=== PATIENT | male | born 1985 | race African-American/Black ===

== ENCOUNTER 2025-06-19 18:54 | Emergency (ER) | payer OTHER, SELFPAY ==
--- OUTSIDE RECORDS SUMMARY | 2025-06-19 19:07 | XMS_ITS | Clinical Summary ---
Author Organization [facility] Address [facility] [place] [address] Care Team Providers Care Electrotype Molder Name Role Phone None, Provider MD Primary Care Provider Unavaila ble Allergies Active Allergy Reactions Criticality Noted Date Comments Lactose Intolerance (Gi) GI Upset 09/22/2023 [place] [employer] GI Upset 09/22/2023 Medications traZODone (DESYREL) 100 MG tablet Take 1 tablet (100 mg total) by mouth nightly as needed. Active cyclobenzaprine (FLEXERIL) 10 MG tablet Take 1 tablet (10 mg total) by mouth 3 (three) times daily as needed for Muscle Spasms. Active Active Problems No known active problems Family History Relation Status Comments Father Alive Mother Alive Social History Tobacco Use Types Packs/Day Years Used Date Smoking Tobacco: Never Smokeless Tobacco: Never Alcohol Use Standard Drinks/Week Comments Not Currently 0 (1 standard drink = 0.6 oz pur e alcohol) socially Sex and Gender Information Value Date Recorded Sex Assigned at Male 12/11/2024 9:08 AM [employer] Legal Sex Male 3:12 PM CDT Gender Identity Not on file Sexual Orientation Not on file Last Filed Vital Signs Vital Sign Reading Time Taken Comments Blood Pressure 134/84 12/11/2024 3:20 PM [employer] Pulse 62 12/11/2024 3:20 PM [employer] Temperature 36.4 C (97.6 F) 12/11/2024 3:20 PM [employer] Respiratory Rate 18 12/11/2024 3:20 PM [employer] Oxygen Saturation 100% 12/11/2024 3:20 PM [employer] Inhaled Oxygen Concentration - - Weight 77.5 kg (170 lb 13.7 oz) 12/11/2024 9:20 AM [employer] Height 176.5 cm (5' 9.5) 12/11/2024 9:20 AM [employer] Body Mass Index 24.87 12/11/2024 9:20 AM [employer] Plan of Treatment Health Maintenance Due Date Last Done Comments Annual Physical 1986 Hepatitis C 2001 Hepatitis B Vaccines (1 of 3 - 19+ 3-dose series) 2002 HPV Vaccines (1 - 3-dose SCD M series) 2010 COVID-19 Vaccine (2023-2 5 season) 2024 04/27/2021, 03/31/2021 DTaP, Tdap and Td Vaccines ( 3 - Td or Tdap) 10/28/2028 10/28/2018, 09/24/2008 Meningococcal Vaccine Aged Out 09/24/2008 No leonela kandace eligible based on patient's age to complete this topic Meningococcal B Vaccine Aged Out No l onger eligible based on patient's age to complete this topic Pneumococcal Vaccine: Pediatrics (0 to 5 Years) and At-Risk Patients (6 to 49 Years) Aged Out No longer eligible b ased on patient's age to complete this topic RSV Immunizations Under 20 Months Aged Out No longer eligible b ased on patient's age to complete this topic Medical Devices Implanted Type Area Layboy Operator Device Identifier Shelf Expiration Date Model / Serial / Lot 3.0 X 17 Asnis Screw Implanted:Qty: 1 on 10/09/2024 by Bhupinder Steward DPM at [facility] Screw Left: Toe [employer] DIV DEV [employer] [id number] / / [id number] Asnis Screw Implanted:Qty: 1 on 12/11/2024 by Bhupinder Steward DPM at [facility] Screw Right: Foot [employer] [id number] / / Easyclip [employer]os[employer] Compression Staple [id number] Implanted:Qty: 1 on 10/09/2024 by Bhupinder Steward DPM at [facility] Staple Left: Toe [employer] - [employer] 02/15/2029 [id number] / / [id number] Staple Bone [id number] 2m - [id number] Implanted:Qty: 1 on 12/11/2024 by Bhupinder Steward DPM at [facility] Staple Right: Foot [employer] - [employer] 08/17/2029 [id number] / / [id number] Wire Fix 5in .045in C-Wire - [id number] Implanted:Qty: 1 on 10/09/2024 by Bhupinder Steward DPM at [facility] Wire Left: Toe [employer] 12/22/2028 [id number] / / [id number] Description:LEFT FIFTH DIGIT Viaflow Implanted:Qty: 1 on 12/11/2024 by Bhupinder Steward DPM at [facility] Right: Foot [employer] 05/11/2029 [id number] / [id number] / Insurance Care Teams Electrotype Molder Relationship Specialty Start Date End Date None, Provider, PCP - General UNKNOWN PHYSICIAN SPECIALTY 05/17/23
--- OUTSIDE RECORDS SUMMARY | 2025-06-19 19:07 | XMS_ITS ---
Author Organization [facility] Address [address] [place], [place] [id number] Care Team Providers Care Candy Maker Helper Name Role Phone GAVIN FRY Unavailable [phone] Medical Group, Unavailable Unavailable REASON FOR VISIT *Orthotic pick-up Encounters Encounter Location Date Provider Diagnosis [facility] [address] [facility] [address] [place], [place] [id number] 04/22/2025 GAVIN FRY Plan Of Treatment No Information Progress Notes * DEBBY MITCHELL LDOB:1985 (40 yo M)Acc No.[id number]:04/22/2025 Patient: Ozzy BALDERRAMADEBBY Dixon Provider: Nino Fry DPM :1985 A ge:40 Y S ex:Male Date:04/22/2025 [id number] Subjective: * Chief Complaints: * 1 . *Orthotic pick-up. * Medical History: Objective: * Vitals: Assessment: Plan: * Treatment: * Billing Information: * Visit Code: * Procedure Codes: * Electronic signature of GAVIN FRY DPM on 06/19/2025 at 07:07 PM CDT Sign off status: Pending * Provider: Nino Fry DPM Date: 0 04/22/2025 Generated for Girish medina/Chey/Gloria on: 0 06/19/2025 07:07 PM CDT
--- OUTSIDE RECORDS SUMMARY | 2025-06-19 19:07 | XMS_ITS | Patient Health Record ---
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 KLL 12/03/2024 THE REFERRAL IS UNDER [facility]. L 05/13/2025 [employer] REFERRALS ARE NO LONGER VALID OF MAY 17, 2025 PER [facility]. KL Diagnosis 1 Bunion of left foot (M21.612) Referred Provider Specialty Podiatry Referral Priority Routine Reason REFERRAL ( S URGERY ) CORRJ HLX [facility]GS [facility] DSTL METEAR O 1 UNIT / REPAIR OF HAMMERTOE 1 UNIT Diagnosis 1 Hallux valgus (acqui red), left foot (M20.12) Referred Organization [facility] Referred Provider GAVIN FRY Referred Address [address],[place], [place],[id number], Referred Provider Specialty Podiatry Referral Priority Routine Reason [facility] REFERRAL ( S URGERY ) [id number], [id number], [id number] / PROVIDER DR. FRY / FACILITY [facility]. KL Diagnosis 1 Hallux valgus (acqui red), right foot (M20.11) Diagnosis 2 Pain in right foot ( M79.671) Diagnosis 3 Other hammer toe(s) (acquired), right foot (M20.41) Referred Organization [facility] Referred Provider GAVIN FRY Referred Address [address],[place], [place],[id number] Referred Provider Specialty Podiatry Referral Priority Routine Reason [facility] REFERRAL 202 5 ( ORTHOTICS ) L3020 FOOT LONGITUD/METATARSAL SUP 4 UNITS ( 2 PAIRS ) Diagnosis 1 Left foot pain (M79. 672) Diagnosis 2 Pain in right foot ( M79.671) Referred Organization [facility] Referred Provider GAVIN FRY Referred Address [address],[place], [id number] Referred Provider Specialty Podiatry Referral Priority Routine Reason [facility] REFERRAL 202 5 ( ORTHOTICS ) FOOT LONGITUD/METATARSAL SUP 4 UNITS ( 2 PAIRS ). KLL Diagnosis 1 Left foot pain (M79. 672) Diagnosis 2 Pain in right foot ( M79.671) Referred Organization [facility] Referred Provider GAVIN FRY Referred Address [address],[id number] Referred Provider Specialty Podiatry Referral Priority Routine Medications Medication SIG (Take, Route, Frequency, Duration) Notes Start Date End Date Status HYDROcodone-Acetamin ophen 5-325 MG 1 tablet as needed Orally every 4-6 hrs As needed for pain. 12/17/2024 Active Flexeril Active traZODone HCl - as directed no ricco listed on paperwork Active HYDROcodone-Acetamin ophen 5-325 MG 1 tablet as needed Orally every 4-6 hrs 12/10/2024 Active HYDROcodone-Acetamin ophen 5-325 MG 1 tablet as needed Orally every 4-6 hrs As needed for pain. 10/08/2024 Active Immunizations Vaccine Route Administration Date Status Comme nts Anthrax vaccine, for SC use Unknown 02/24/2013 Administ ered Anthrax vaccine, for SC use Unknown 03/27/2013 Administ ered Anthrax vaccine, for SC use Unknown 11/25/2013 Administ ered Anthrax vaccine, for SC use Unknown 06/14/2015 Administ ered Anthrax vaccine, for SC use Unknown 07/24/2016 Administ ered Influenza virus vaccine, quadrivalent, live (LAIV4), for intranasal use Unknown 08/10/2013 Administered Influenza virus vaccine, quadrivalent, live (LAIV4), for intranasal use Unknown 09/03/2014 Administered Influenza virus vaccine, quadrivalent, live (LAIV4), for intranasal use Unknown 10/31/2015 Administered Influenza, high dose seasonal Unknown 10/27/2024 Refuse d Influenza, high dose seasonal Unknown 11/17/2024 Refuse d Influenza, high dose seasonal Unknown 01/26/2025 Refuse d Influenza, live, intranasal Unknown 09/06/2009 Administ ered Influenza, live, intranasal Unknown 09/26/2010 Administ ered Influenza, live, intranasal Unknown 08/14/2011 Administ ered Influenza, live, intranasal Unknown 08/07/2012 Administ ered Influenza, quadrivalent, spl it, preservative free, 3 years or older Unknown 09/08/2018 Administered Influenza, quadrivalent, spl it, preservative free, 3 years or older Unknown 09/03/2019 Administered Influenza, quadrivalent, spl it, preservative free, 3 years or older Unknown 10/25/2020 Administered Influenza, quadrivalent, spl it, preservative free, 3 years or older Unknown 08/30/2021 Administered Influenza, quadrivalent, spl it, preservative free, 3 years or older Unknown 09/18/2022 Administered Influenza, quadrivalent, spl it, preservative free, 3 years or older Unknown 09/04/2023 Administered Influenza, seasonal, injecta ble, preservative free, 6-35 months Unknown 08/10/2016 Administered IPV Unknown 09/24/2008 Administered Meningococcal MCV4P Unknown 09/24/2008 Administered Moderna Covid-19 Vaccine 1st dose Unknown 03/31/2021 Ad ministered Moderna Covid-19 Vaccine 1st dose Unknown 04/27/2021 Ad ministered Influenza (split), preservat hans free, 6-35 months Unknown 09/24/2008 Administered Hep A, Adult Unknown 09/29/2008 Administered Hep A, Adult Unknown 06/14/2009 Administered Novel [id number], nasal Unknown 12/20/2009 Admin istered Pneumococcal conjugate PCV 13 Unknown 10/27/2024 Refuse d Pneumococcal conjugate PCV 13 Unknown 11/17/2024 Refuse d Pneumococcal conjugate PCV 13 Unknown 01/26/2025 Refuse d Td (adult), adsorbed Unknown 10/28/2018 Administered Tdap Unknown 09/24/2008 Administered Typhoid, ViCPs Unknown 02/24/2013 Administered Typhoid, ViCPs Unknown 06/14/2015 Administered Typhoid, ViCPs Unknown 04/02/2018 Administered Vital Signs Height-cm 175.26 cm 04/27/2025 Height 69 in 04/27/2025 Encounters Encounter Location Date Provider Diagnosis [address] [id number] 10/09/2024 GAVIN SNOOK [address] [id number] 12/11/2024 GAVIN SNOOK [facility] [address] [place], [place] [id number] 08/11/2024 GAVIN SNOOK Hallux valgus (acquired), left foot M20.12 ; Other hammer toe(s) (acquired), left foot M20.42 ; Hallux valgus (acquired), right foot M20.11 ; Ingrowing nail L60.0 and Left foot pain M79.672 [facility] [address] [place], [place] [id number] 10/13/2024 GAVIN SNOOK Hallux valgus (acquired), left foot M20.12 ; Other hammer toe(s) (acquired), left foot M20.42 ; Left foot pain M79.672 and Encounter for other specified surgical aftercare Z48.89 [facility] [address] [place], [place] [id number] 10/21/2024 GAVIN SNOOK Hallux valgus (acquired), right foot M20.11 ; Other hammer toe(s) (acquired), right foot M20.41 ; Hallux valgus (acquired), left foot M20.12 ; Left foot pain M79.672 and Encounter for other specified surgical aftercare Z48.89 [facility] [address] [place], [place] [id number] 10/27/2024 GAVIN SNOOK Hallux valgus (acquired), left foot M20.12 ; Left foot pain M79.672 and Encounter for other specified surgical aftercare Z48.89 [facility] [address] [place], [place] [id number] 11/17/2024 GAVIN SNOOK Hallux valgus (acquired), left foot M20.12 ; Left foot pain M79.672 and Encounter for other specified surgical aftercare Z48.89 [facility] [address] [place], [place] [id number] 12/17/2024 GAVIN SNOOK Hallux valgus (acquired), right foot M20.11 ; Hammer toe of right foot M20.41 ; Pain in right foot M79.671 and Encounter for other specified surgical aftercare Z48.89 [facility] [address] [place], [place] [id number] 12/31/2024 GAVIN SNOOK Hallux valgus (acquired), right foot M20.11 ; Hammer toe of right foot M20.41 ; Encounter for other specified surgical aftercare Z48.89 and Pain in right foot M79.671 [facility] [address] [place], [place] [id number] 01/14/2025 GAVIN SNOOK Hallux valgus (acquired), right foot M20.11 ; Hammer toe of right foot M20.41 ; Encounter for other specified surgical aftercare Z48.89 and Pain in right foot M79.671 [facility] [place] [address] [place], [place] [id number] 01/26/2025 GAVIN SNOOK Hallux valgus (acquired), right foot M20.11 ; Hammer toe of right foot M20.41 ; Encounter for other specified surgical aftercare Z48.89 and Pain in right foot M79.671 [facility] [address] [place], [place] [id number] 03/25/2025 GAVIN SNOOK Hallux valgus (acquired), right foot M20.11 ; Hallux valgus (acquired), left foot M20.12 ; Hammer toe of right foot M20.41 ; Cellulitis of right toe L03.031 ; Tinea pedis B35.3 and Ingrowing nail L60.0 [facility] [address] [place], [place] [id number] 04/13/2025 GAVIN SNOOK Hallux valgus (acquired), right foot M20.11 ; Hallux valgus (acquired), left foot M20.12 ; Ingrowing nail L60.0 ; Tinea pedis B35.3 and Cellulitis of right toe L03.031 [facility] [address] [place], [place] [id number] 04/27/2025 GAVIN SNOOK Contusion of right lesser toe(s) without damage to nail, subsequent encounter S90.121D and Pain in right foot M79.671 [facility] [address] [place], [place] [id number] 10/08/2024 GAVIN SNOOK [facility] [address] [place], [place] [id number] 12/10/2024 GAVIN SNOOK Assessments Encounter Date Diagnosis (ICD Code) Assessment Notes Treatment Notes Treatment Clinical Notes Section Notes 08/11/2024 Hallux valgus (acquired), left foot (ICD-10 - M20.12) Bunion Surgical Consent Surgical Consent The patient understands there are no guarantees. There is a chance of: 1. Infection 2. Failure or rejection of implant 3. Overcorrection 4. Undercorrection 5. Non resolution of the problem 6. Transfer lesions to adjacent metatarsals 7. Return of the problem 8. Numbness 9. Anesthetic reaction 10. Healing problems or blood clot 11. Additional or revisional surgery may be required if complications occur The patient had no further question and has agreed to undergo surgical correction of the admitting diagnosis. Patient has signed the written consent form at this time. Proposed Procedure: Estevan bunionectomy with hardware fixation, left foot. Sean osteotomy left hallux with hardware, left foot 08/11/2024 Other hammer toe(s) (acquired), left foot (ICD-10 - M20.42) Hammertoe Surgical Consult: Surgical Consent The patient understands there are no guarantees. There is a chance of: 1. Infection 2. Failure or rejection of implant 3. Overcorrection 4. Undercorrection 5. Non resolution of the problem 6. Return of the problem 7. Numbness 8. Anesthetic reaction 9. Healing problems or blood clot 10. Additional or revisional surgery may be required if complications occur The patient had no further question and has agreed to undergo surgical correction of the admitting diagnosis. Patient has signed the written consent form at this time. Proposed procedure: De-rotational hammertoe correction 5th digit left foot 10/13/2024 Hallux valgus (acquired), left foot (ICD-10 - M20.12) 10/13/2024 Other hammer toe(s) (acquired), left foot (ICD-10 - M20.42) 10/21/2024 Hallux valgus (acquired), right foot (ICD-10 - M20.11) Bunion: Discussed various treatments with the patient regarding hallux abducto valgus deformity. Discussed conservative care consisting of padding, wider shoes, anti-inflammatorie s, and orthotics. Discussed surgical treatment options and answered all questions about the intra-operative and post-operative treatment course. 10/21/2024 Other hammer toe(s) (acquired), right foot (ICD-10 - M20.41) Hammertoe Deformity: Discussed various treatments for hammer toes with the patient . Discussed conservative care consisting of padding, wider shoes, anti-inflammatorie s, and orthotics. Discussed surgical treatment options and answered all questions about the intra-operative and post-operative treatment course. 10/27/2024 Hallux valgus (acquired), left foot (ICD-10 - M20.12) Suture Removal: The sutures were removed. Surgical Post Operative Visit: Continue post-operative restrictions. Patient may resume normal bathing. Wear surgical shoe at all times when bearing weight. Decrease activity. 11/17/2024 Left foot pain (ICD-10 - M79.672) 12/17/2024 Hallux valgus (acquired), right foot (ICD-10 - M20.11) 10/27/2024 Left foot pain (ICD-10 - M79.672) 11/17/2024 Hallux valgus (acquired), left foot (ICD-10 - M20.12) The patient may progress to normal shoes and activities as tolerated. Work Restrictions: Provided a note to the patient outlining work restrictions and limitations. 12/17/2024 Hammer toe of right foot (ICD-10 - M20.41) 12/31/2024 Hallux valgus (acquired), right foot (ICD-10 - M20.11) 12/31/2024 Hammer toe of right foot (ICD-10 - M20.41) 01/14/2025 Hallux valgus (acquired), right foot (ICD-10 - M20.11) 01/14/2025 Hammer toe of right foot (ICD-10 - M20.41) 01/26/2025 Hallux valgus (acquired), right foot (ICD-10 - M20.11) 01/26/2025 Hammer toe of right foot (ICD-10 - M20.41) 03/25/2025 Hallux valgus (acquired), right foot (ICD-10 - M20.11) Orthotic Scan: The patient was scanned for functional orthotic devices. This was done in the subtalar joint neutral position in a non-weightbearing fashion. The patient will follow-up in 3-4 weeks time to be dispensed and fitted with the devices. 03/25/2025 Hallux valgus (acquired), left foot (ICD-10 - M20.12) 04/13/2025 Hallux valgus (acquired), right foot (ICD-10 - M20.11) Orthotic Dispense: The orthotic devices were dispensed and fitted. It was noted that the orthotic conformed well to the patient's foot in the subtalar joint neutral position. The patient was educated on the device's use, as well as the gradual break-in period for the device. 04/13/2025 Hallux valgus (acquired), left foot (ICD-10 - M20.12) 04/27/2025 Pain in right foot (ICD-10 - M79.671) 04/27/2025 Contusion of right lesser toe(s) without damage to nail, subsequent encounter (ICD-10 - S90.121D) 01/26/2025 Encounter for other specified surgical aftercare (ICD-10 - Z48.89) Mederma: I recommended that the patient use [id number] Mederma for scar. B6 And B12: Recommend that the patient take over the counter Vitamin B6 and B12. B6 pills should be taken 2-3 times a day. Vitamin B12 should be taken once a day as an under the tongue lozenge. 04/13/2025 Ingrowing nail (ICD-10 - L60.0) Resolved 03/25/2025 Hammer toe of right foot (ICD-10 - M20.41) 12/31/2024 Encounter for other specified surgical aftercare (ICD-10 - Z48.89) Suture Removal: The sutures were removed. Surgical Post Operative Visit: Continue post-operative restrictions. Patient may resume normal bathing. Wear surgical shoe at all times when bearing weight. Decrease activity. The patient needs to NOT DRIVE and must wear his surgical shoe and not a Croc!!!! Patient verbalized understanding. 01/14/2025 Encounter for other specified surgical aftercare (ICD-10 - Z48.89) The patient may progress to normal shoes and activities as tolerated. Return to Activities: Patient may return to activities as tolerated. 11/17/2024 Encounter for other specified surgical aftercare (ICD-10 - Z48.89) 12/17/2024 Pain in right foot (ICD-10 - M79.671) 10/27/2024 Encounter for other specified surgical aftercare (ICD-10 - Z48.89) 10/13/2024 Left foot pain (ICD-10 - M79.672) 10/21/2024 Hallux valgus (acquired), left foot (ICD-10 - M20.12) Dressing Change: The old dressing was removed. Utilizing aseptic technique, a new sterile compression dressing was applied. Patient was instructed to keep it dry and not remove it. Surgical Post Operative Visit: Continue post-operative restrictions. Patient may resume normal bathing. Wear surgical shoe at all times when bearing weight. Decrease activity. 08/11/2024 Hallux valgus (acquired), right foot (ICD-10 - M20.11) 08/11/2024 Ingrowing nail (ICD-10 - L60.0) 10/13/2024 Encounter for other specified surgical aftercare (ICD-10 - Z48.89) 10/21/2024 Left foot pain (ICD-10 - M79.672) 12/17/2024 Encounter for other specified surgical aftercare (ICD-10 - Z48.89) 12/31/2024 Pain in right foot (ICD-10 - M79.671) 01/14/2025 Pain in right foot (ICD-10 - M79.671) 04/13/2025 Tinea pedis (ICD-10 - B35.3) 01/26/2025 Pain in right foot (ICD-10 - M79.671) 03/25/2025 Cellulitis of right toe (ICD-10 - L03.031) Infection Protocol: Patient instructed to observe foot for signs and symptoms of infection, including but not limited to: increased redness and warmth to the area, increased drainage from the area, foul odor, and/or presence of fever/chills/nause a/vomiting. If patient experiences any of the above they are to call the office immediately, if someone is not present in the office then proceed to the nearest ER. 03/25/2025 Tinea pedis (ICD-10 - B35.3) Tinea Pedis: Tinea pedis (athlete's foot) is a dermatologic fungal infection that typically affects the epidermis and is the most common dermatophyte infection. Tinea pedis is transmitted via direct skin contact, contaminated floors, towels and clothing/shoes and thrives in warm, moist environments. Approximately 26.5 million people are affected annually. Nearly half of these people will suffer from multiple episodes for years. Interdigital tinea pedis presents as erythematous, pruritic, scales or erosions between toes. [place]-type tinea pedis affects the soles and medial and lateral sides of the feet and often is itchy, hyperkeratotic and flaking. Inflammatory tinea pedis is characterized by pruritic erythematous, painful vesicles or bullae most commonly on the medial foot. Treatment varies from OTC preparations to a large variety of topical and oral medications. Patient education and proper foot hygiene are important components to the successful treatment of this infection. 04/13/2025 Cellulitis of right toe (ICD-10 - L03.031) 08/11/2024 Left foot pain (ICD-10 - M79.672) 10/21/2024 Encounter for other specified surgical aftercare (ICD-10 - Z48.89) 03/25/2025 Ingrowing nail (ICD-10 - L60.0) Slant Back Toenail: Following skin prep, the offending nail border was debrided without anesthesia. The patient was instructed on monitoring for infection or recurrence. 08/11/2024 Other I explained that ingrown toenail surgery requires soaking 15 mins twice a day for 3 weeks following the procedure. With the bunion surgery, he can't get the foot wet for 3 weeks; so in this regard they can not be done. I did offer toenail surgery in-office. Patient will consider this at a later date 10/13/2024 Other Dressing Change: The old dressing was removed. Utilizing aseptic technique, a new sterile compression dressing was applied. Patient was instructed to keep it dry and not remove it. Continue post-operative restrictions. Keep foot and dressing dry. Wear surgical shoe at all times when bearing weight. Decrease activity. 10/21/2024 Other Bunion and Hammertoe Surgical Consent Surgical Consent The patient understands there are no guarantees. There is a chance of: 1. Infection 2. Failure or rejection of implant 3. Overcorrection 4. Undercorrection 5. Non resolution of the problem 6. Transfer lesions to adjacent metatarsals 7. Return of the problem 8. Numbness 9. Anesthetic reaction 10. Healing problems or blood clot 11. Additional or revisional surgery may be required if complications occur The patient had no further question and has agreed to undergo surgical correction of the admitting diagnosis. Patient has signed the written consent form at this time. Proposed procedures: 1) Estevan bunionectomy of the right foot. 2) Saen osteotomy of the right hallux with hardware. 3) Hammertoe correction, 5th digit, right foot. 12/17/2024 Other Dressing Change: The old dressing was removed. Utilizing aseptic technique, a new sterile compression dressing was applied. Patient was instructed to keep it dry and not remove it. Continue post-operative restrictions. Keep foot and dressing dry. Wear surgical shoe at all times when bearing weight. Decrease activity. 04/27/2025 Other Rest: Rest the affected foot as much as possible. Plan Of Treatment No Information Insurance Providers Payer Name Payer Address Payer Phone Subscriber Number Group Number Insured Name Patient Relationship to Insured Coverage Start Date Coverage End Date [facility] [address] [phone] [id number] DEBBY MITCHELL Self - patient is the insured Medical (General) History Medical History History ICD Code Arthritis Back Trouble
[2025-06-19 19:11] VITALS: BP 129/80; PULSE 97; RESP 18; TEMP 36.6; O2SAT 99
--- NOTE | 2025-06-19 19:11 | ED_ITS ---
HPI - Wound/Laceration General Chief Complaint: Wound/Laceration Stated Complaint: Cut RT wrist Time Seen by Provider: 06/19/25 19:11 Source: patient Mode of arrival: ambulatory Limitations: no limitations History of Present Illness HPI narrative: 40-year-old male presents with laceration to right wrist. Was working on a vehicle and rotor came off and cut right wrist. Injury happened approximately 2-3 hours ago. Patient states applied pressure and dressing and then went out for dinner. Range of motion and distal neurovascularly intact. Bleeding controlled upon arrival. All systems reviewed and negative except as noted above. Related Data Home Medications ?Medication ?Instructions ?Recorded ?Confirmed ?Last Taken ?Type cyclobenzaprine 10 mg tablet mg 06/19/25 Unknown History hydroxyzine HCl 25 mg tablet mg 06/19/25 Unknown History Allergies Allergy/AdvReac Type Severity Reaction Status Date / Time orange AdvReac Mild Diarrhea Verified 06/19/25 19:22 PMFSH Comments At time of signature, agree with nursing past medical, surgical, social and family history. There is no relevant family history pertinent to the presenting complaint. Exam Narrative: GENERAL: This is a well-nourished, well-developed patient, in no apparent distress. HEAD: normocephalic, atraumatic. EYES: PERRL. Sclera clear/white. Vision is grossly intact. EARS: External ears normal NOSE: External nose normal NECK: Neck supple, non-tender without lymphadenopathy, masses or thyromegaly. CARDIOVASCULAR: Regular rate and rhythm without murmurs, gallops, or rubs. RESPIRATORY: Clear to auscultation. Breath sounds equal bilaterally. No wheezes, rales, or rhonchi. SKIN: warm, Dry, with no suspicious lesions or rash, good texture and turgor. 2 cm laceration to anterior medial aspect of right wrist. Bleeding controlled. NEURO: awake, alert, and oriented to person, place and time. There were no obvious focal neurologic abnormalities. EXTREMITIES: No joint tenderness, effusion, or edema noted. Course Course Level of Care: Express Care Visit Vital Signs Vital signs: Vital Signs Temperature 36.6 C 06/19/25 19:11 Pulse Rate 97 06/19/25 19:11 Respiratory Rate 18 06/19/25 19:11 Blood Pressure 129/80 06/19/25 19:11 Pulse Oximetry 99 06/19/25 19:11 Oxygen Delivery Room Air 06/19/25 19:11 Temperature 36.6 C 06/19/25 19:11 Pulse Rate 97 06/19/25 19:11 Respiratory Rate 18 06/19/25 19:11 Blood Pressure 129/80 06/19/25 19:11 Pulse Oximetry 99 06/19/25 19:11 Oxygen Delivery Room Air 06/19/25 19:11 Reviewed Procedures Laceration Laceration 1: Date: 06/19/25 Time: 19:45 Site: upper extremity (wrist) Side (If applicable): right Size (cm): 2 Description: linear Depth: simple, single layer Local Anesthetic: lidocaine 1% Amount of anesthesia used (mL): 3 Pre-repair: wound explored and irrigated ====== Skin Level ====== Skin layer closed with: nylon Size (cm): 4-0 Number of sutures: 4 Technique: simple, interrupted ====== Subcutaneous Layer ====== ====== Muscle Layer ====== ====== Tendon Layer ====== MDM - Wound/Laceration MDM Narrative Medical decision making narrative: laceration to right wrist repaired with sutures. Range of motion and distal neurovascularly intact pre and post procedure. Recommend follow-up with primary care physician in 10 days for suture removal. Prescribe cephalexin for infection prevention due to injury from dirty car part. Patient agrees with plan of care. Differential Diagnosis Differential diagnosis: Likely laceration, abrasion and avulsion of skin Discharge Plan Discharge Clinical Impression: Laceration of right wrist Qualifiers: Encounter type: initial encounter Qualified Code(s): S61.511A - Laceration without foreign body of right wrist, initial encounter Patient Disposition: Home Condition: Stable Instructions: Antibiotic Form, Care For Your Stitches (ED), Laceration (ED) Additional Instructions: Take antibiotic as prescribed to prevent wound infection. your tetanus vaccine was updated today. Keep wound clean and dry. Do not pull or scrub at sutures. Follow-up in 7-10 days for suture removal. If you have signs of infection such as redness, swelling, drainage follow-up with your primary care physician. Patient Language: Mosotho Prescriptions: New cephalexin 500 mg capsule 500 mg PO Q12H 7 Days Qty: 14 0RF No Action cyclobenzaprine 10 mg tablet hydroxyzine HCl 25 mg tablet Follow-up/Referrals: PHYSICIAN,WAITER/WAITRESS FORMAL [Primary Care Provider] - Time of Disposition: 19:56
[2025-06-19] MEDS: LIDOCAINE 1% LOCAL INJ 2 ML AMPUL 4 ML INFILTRATE (19:19)
[2025-06-19] MEDS: TETANUS,DIPHTHERIA,AC PERTUSSIS ADULT (0.5 ML) BOOSTRIX IM (19:21)
== END 2025-06-19 20:00 | disposition home or self-care (01) ==
PROVIDERS: Emergency Provider Nurse Practitioner Family
DX: S61.511A Laceration without foreign body of right wrist, initial encounter (principal); W45.8XXA Other foreign body or object entering through skin, initial encounter; Z23 Encounter for immunization
CPT/HCPCS: 12001; 90471; 90715; 99213; G0463; J2003